=== PATIENT | female | born 1960 | race Caucasian/White ===

== ENCOUNTER → 2020-01-03 | Outpatient (CLI) | payer BC ==
[2020-01-04 12:52] LABS: Beef IgE <0.10 kU/L (<0.10); Beef IgE Class CLASS 0; Pork IgE Class CLASS 0
[2020-01-04 12:53] LABS: Yeast Bakers/Brew IgE <0.10 kU/L (<0.10); Yeast Bakers/Brew IgE Class CLASS 0
[2020-01-04 12:54] LABS: Chicken IgE Class CLASS 0; Latex IgE Class CLASS 0
[2020-01-04 12:55] LABS: Cow's Milk IgE Class CLASS 0; Egg White IgE <0.10 kU/L (<0.10); Peanut IgE <0.10 kU/L (<0.10); Potato IgE <0.10 kU/L (<0.10); Potato IgE Class CLASS 0; Soybean IgE <0.10 kU/L (<0.10)
[2020-01-04 12:56] LABS: Avocado Class CLASS 0; Banana IgE Class CLASS 0; Hazelnut IgE <0.10 kU/L (<0.10); Hazelnut IgE Class CLASS 0; Kiwi IgE <0.10 kU/L (<0.10); Kiwi IgE Class CLASS 0
== END | disposition home or self-care (01) ==
LOC: LABWHC1 13:12
PROVIDERS: ATTEND Otolaryngology
DX: L50.0 Allergic urticaria (principal)
CPT/HCPCS: 36415; 86001; 86003

== ENCOUNTER 2020-01-21 18:10 | Emergency (ER) | payer BC ==
[2020-01-21 18:19] VITALS: BP 153/88; PULSE 85; RESP 18; TEMP 98.1
[2020-01-21] MEDS ORDERED: KETOROLAC 15 MG/ML 1 ML VIAL IM STA (18:35)
--- NOTE | 2020-01-21 18:44 | ED ---
Fall HPI - General Chief Complaint: Fall Stated Complaint: Fall/5 steps/rib pain Time Seen by Provider: 01/21/20 18:22 Source: patient Mode of arrival: ambulatory - History of Present Illness Initial Comments: 59-year-old female presenting to emergency Department with a chief complaint of fall. Patient states that incident occurred yesterday when she was walking down stairs, lost control and went down 5 stairs. Patient reports she did not pass out but did injure her head. She does report an abrasion under her right eye. She also reports left-sided rib pain under her left breast. She states there is localized pain to the region but denies any ecchymosis or swelling. States the pain is slightly exacerbated with taking full deep breaths. She does report going to an urgent care where she was prescribed muscle relaxers but no significant improvement in her symptoms. She denies any nausea vomiting diarrhea. Denies any headaches, visual disturbances one-sided weakness paresthesias. - Related Data Previous Rx's Medication Instructions Recorded HYDROcodone/APAP 7.5-325MG [[place] 1 - 2 each PO Q6HR PRN #60 tab 09/11/15 7.5] HYDROcodone/APAP 7.5-325MG [[place] 1 - 2 each PO Q6HR PRN #40 tab 12/10/15 7.5-325] Allergies Allergy/AdvReac Type Severity Reaction Status Date / Time Penicillins Allergy Rash/Hives Verified 01/21/20 18:16 sulfamethoxazole Allergy Rash/Hives Verified 01/21/20 18:16 [From Bactrim] trimethoprim [From Bactrim] Allergy Rash/Hives Verified 01/21/20 18:16 Review of Systems ROS Statement: Those systems with pertinent positive or pertinent negative responses have been documented in the HPI. ROS Other: All systems not noted in ROS Statement are negative. Past Medical History Past Medical History: No Reported History History of Any Multi-Drug Resistant Organisms: None Reported Past Surgical History: Joint Replacement, Orthopedic Surgery Additional Past Surgical History / Comment(s): LT KNEE SCOPE, 09/10/15 total left knee Past Anesthesia/Blood Transfusion Reactions: No Reported Reaction Past Psychological History: No Psychological Hx Reported Smoking Status: Never smoker Past Alcohol Use History: Occasional Past Drug Use History: None Reported - Past Family History Mother Family Medical History: Cancer Brother(s) Family Medical History: Cancer Sister(s) Family Medical History: Cancer General Exam Limitations: no limitations General appearance: alert, in no apparent distress Head exam: Present: normocephalic, normal inspection. Absent: atraumatic (Abrasion on the right eye.), other (Negative Morillo sign, raccoon eyes, hemotympanum.) Eye exam: Present: normal appearance, PERRL, EOMI Pupils: Present: normal accommodation ENT exam: Present: normal exam, normal oropharynx, mucous membranes moist, TM's normal bilaterally, normal external ear exam Neck exam: Present: normal inspection, full ROM. Absent: tenderness, meningismus Respiratory exam: Present: normal lung sounds bilaterally, chest wall tenderness (Localized tenderness under the left breast.). Absent: respiratory distress, wheezes, rales Cardiovascular Exam: Present: regular rate, normal rhythm, systolic murmur GI/Abdominal exam: Present: soft. Absent: distended, tenderness, guarding, rebound Extremities exam: Present: normal inspection, full ROM, normal capillary refill. Absent: tenderness, pedal edema, joint swelling, calf tenderness Back exam: Present: normal inspection, full ROM. Absent: tenderness, CVA tenderness (R), CVA tenderness (L), muscle spasm, paraspinal tenderness, vertebral tenderness Neurological exam: Present: alert, oriented X3 Psychiatric exam: Present: normal affect, normal mood Skin exam: Present: warm, dry, intact, normal color Course Vital Signs 01/21/20 18:16 Temperature 98.1 F Pulse Rate 85 Respiratory 18 Rate Blood Pressure 153/88 O2 Sat by Pulse 100 Oximetry Medical Decision Making - Medical Decision Making 59-year-old female presenting to emergency Department with a chief been no fall. On physical examination, the patient has a localized tenderness to the left- sided ribs, particularly under her left breast. She also has an abrasion in the right infraorbital region. CT of the brain and C-spine is unremarkable. X-ray of the chest and ribs shows a nondisplaced lateral rib fracture on the fifth and sixth left rib. Patient was given an incentive spirometer as well as a Tylenol 3 starter pack. Patient was otherwise advised to alternate between Tylenol and Motrin. Strict return parameters were thoroughly discussed with patient was standing and agreeable. Case discussed with physician. Disposition Clinical Impression: Fall, Multiple fractures of ribs, left side, initial encounter for closed fracture, Facial abrasion Disposition: HOME SELF-CARE Condition: Stable Instructions (If sedation given, give patient instructions): Rib Fracture (ED) Additional Instructions: Use the incentive spirometer. Take Tylenol [address] operate heavy machinery when taking it. Otherwise alternate between Tylenol and Motrin for pain control. Return to emergency department if symptoms worsen. Is patient prescribed a controlled substance at d/c from ED?: No Referrals: Merlene Mancia MD [Primary Care Provider] - 1-2 days Time of Disposition: 19:39
--- NOTE | 2020-01-21 19:00 | XR ---
EXAMINATION TYPE: XR ribs LT w pa chest xray DATE OF EXAM: 01/21/2020 COMPARISON: NONE HISTORY: Pain TECHNIQUE: 5 views FINDINGS: Heart and mediastinum are within normal limits. Lungs are clear of infiltrate. There is no pleural effusion or pneumothorax. There are nondisplaced fractures of the lateral left fifth and sixt h ribs. IMPRESSION: Left-sided rib fractures. No cardiopulmonary disease.
--- NOTE | 2020-01-21 19:16 | CT ---
EXAMINATION TYPE: CT brain cspine wo con DATE OF EXAM: 01/21/2020 COMPARISON: None HISTORY: Facial laceration post fall injury CT DLP: 1600.8 mGycm Automated exposure control for dose reduction was used. Ventricles and sulci appear normal. There is no mass effect nor midline shift. There is no sign of in tracranial hemorrhage. The calvarium is intact. Skull base is intact. Cervical vertebra have normal alignment. There is spurring of the endplates in the lower cervical spi ne. Facet joints show multilevel hypertrophic spur formation. Prevertebral soft tissues are intact. T here is no evidence of cervical spine fracture. IMPRESSION: Negative CT scan of the brain. Spondylotic changes in the lower cervical spine. No fracture.
[2020-01-21] MEDS ORDERED: ACET/COD 300 MG/30 MG STARTER PACK 6 TAB BTL PO STA (19:29)
== END 2020-01-21 20:02 | disposition home or self-care (01) ==
LOC: EC 18:10
DX: S22.42XA Multiple fractures of ribs, left side, initial encounter for closed fracture (principal); S00.81XA Abrasion of other part of head, initial encounter; Z88.0 Allergy status to penicillin; Z88.2 Allergy status to sulfonamides; Z88.1 Allergy status to other antibiotic agents; Z96.652 Presence of left artificial knee joint; W10.9XXA Fall (on) (from) unspecified stairs and steps, initial encounter; Y93.01 Activity, walking, marching and hiking; Y92.009 Unspecified place in unspecified non-institutional (private) residence as the place of occurrence of the external cause
CPT/HCPCS: 71101; 72125; 70450; 96372; 99284; J1885

== ENCOUNTER → 2020-10-24 | Outpatient (CLI) | payer BC ==
--- NOTE | 2020-10-24 14:55 | USB ---
Reason for exam: clinical finding. History: Patient had first child after 30. Family history of breast cancer in sister. Indicated problem(s): palpable abnormality in the left breast. Physical Findings: Nurse Summary: 1cm palpable lump left breast 7-8 o'clock, patient states has been there for 20 years but now getting bigger (nurse TM). US Breast LT Left complete breast ultrasound includes all four quadrants, the retroareolar region and axilla. Finding demonstrates a 0.9 x 0.5 x 1.1cm oval, hypoechoic lesion at 7 o'clock in skin line, probable sebaceous cyst. Recommend mammography. These results were verbally communicated with the patient and result sheet given to the patient on 10/24/20. ASSESSMENT: Probably benign, BI-RAD 3 RECOMMENDATION: Ultrasound of the left breast in 6 months.
== END | disposition home or self-care (01) ==
LOC: RADMAMWWP 13:38
PROVIDERS: ATTEND Family Medicine
DX: N63.0 Unspecified lump in unspecified breast (principal)

== ENCOUNTER → 2022-07-24 | Outpatient (CLI) | payer BC ==
[2022-07-24 10:57] LABS: Basophils # (A) 0.04 X 10*3/uL (0.00-0.10); Basophils % (A) 0.9 %; Eosinophils % (A) 2.2 %; HCT 42.8 % (37.2-46.3); HGB 13.5 g/dL (12.0-15.0); Immature Grans, Automated 0.2 %; Lymphocytes # (A) 1.75 X 10*3/uL (0.90-5.00); Lymphocytes % (A) 38.6 %; MCH 27.7 pg (27.0-32.0); MCHC 31.5 g/dL (32.0-37.0); MCV 87.9 fL (80.0-97.0); Monocytes # (A) 0.33 X 10*3/uL (0.20-1.00); Monocytes % (A) 7.3 %; NRBC Per 100 WBC 0 /100 WBCS (0.0-0.0); Neutrophils % (A) 50.8 %; Platelet Count 177 X 10*3/uL (140-440); RBC 4.87 X 10*6/uL (4.10-5.20); RDW 13.7 % (11.5-14.5); WBC 4.53 X 10*3/uL (4.50-10.00)
[2022-07-24 14:26] LABS: INR 0.86 (0.90-1.11); Prothrombin Time 9.8 sec (9.9-11.9)
[2022-07-24 16:22] LABS: African American GFR (CKD) 92.2 (60.0-200.0); Anion Gap 12.9 mmol/L (10.00-18.00); BUN/Creat Ratio 20.75 Ratio (12.00-20.00); Blood Urea Nitrogen 16.6 mg/dL (9.0-27.0); Calcium 9.3 mg/dL (8.7-10.3); Carbon Dioxide 25.1 mmol/L (20.0-27.5); Non-African American GFR(CKD) 79.6 (60.0-200.0); Potassium 4.1 mmol/L (3.5-5.5)
== END | disposition home or self-care (01) ==
LOC: LABWHC1 07:52
PROVIDERS: ATTEND Orthopaedic Surgery
DX: Z01.818 Encounter for other preprocedural examination (principal); M17.11 Unilateral primary osteoarthritis, right knee; Z22.322 Carrier or suspected carrier of Methicillin resistant Staphylococcus aureus
CPT/HCPCS: 36415; 80048; 85025; 85610; 87070; 93005

== ENCOUNTER 2022-07-30 06:24 | Day surgery (SDC) | payer BC ==
--- NOTE | 2022-07-29 13:11 | HP ---
HISTORY AND PHYSICAL DATE OF SCHEDULED SURGERY: 07/30/2022. HISTORY OF PRESENT ILLNESS: Greer Chapin is a 61-year-old patient seen with symptomatic right knee osteoarthritis. We discussed options regarding treatment. She elected to proceed with right total knee arthroplasty. Consent regarding the procedure was obtained. PAST MEDICAL HISTORY: Noncontributory. SURGICAL HISTORY: Knee arthroscopy. DAILY MEDICATIONS: Ibuprofen as needed. ALLERGIES: Penicillin and Bactrim. SOCIAL HISTORY: She denies current tobacco use. PHYSICAL EVALUATION OF RIGHT KNEE: Range of motion is -6/7 to 110 degrees. Mild effusion. Tenderness along the medial joint line with a positive medial Belia's. Medial patellofemoral crepitus on range of motion. There is some pain with patellofemoral compression. Ligaments stable. Painless rotation of the hip. Distal neurovascular exam intact. RADIOGRAPHS: Right knee radiographs reveal severe osteoarthritic changes. IMPRESSION: Right knee osteoarthritis. PLAN: Right total knee arthroplasty. MMODL / IJN: [id number] /
[~2022-07-30 06:24] MED LIST: ACETAMINOPHEN TAB 500 MG TAB PO PRN; MELOXICAM 7.5 MG TAB PO PRN; TRANEXAMIC ACID IN NACL,ISO-OS 1,000 MG in SALINE 1 100ML.BAG IVPB PRN; ceFAZolin 3 GM in SODIUM CHLORIDE 0.9% 100 ML IVPB PRN
[2022-07-30] MEDS ORDERED: LACTATED RINGERS 1,000 ML IV SCH (06:46)
[2022-07-30] MEDS ORDERED: DEXAMETHASONE SOD PHOSPHATE 4 MG/ML 1 ML VIAL IV ONE (06:46)
[2022-07-30] MEDS ORDERED: LIDOCAINE 1% (10MG/ML) FOR IV START INTRADERMA PRN (06:46)
[2022-07-30] MEDS ORDERED: ONDANSETRON 4 MG/2 ML VIAL IVP ONE (06:46)
[2022-07-30] MEDS ORDERED: MIDAZOLAM 2 MG/2 ML VIAL IV PRN (06:46)
[2022-07-30] MEDS ORDERED: fentaNYL (PF) 50 MCG/ML 2 ML AMP IVP PRN (07:00)
[2022-07-30 07:17] VITALS: RESP 16
[2022-07-30] MEDS ORDERED: fentaNYL (PF) 50 MCG/ML 2 ML AMP IV ONE (07:26)
[2022-07-30] MEDS ORDERED: MIDAZOLAM 2 MG/2 ML VIAL IVP ONE (07:26)
--- NOTE | 2022-07-30 07:52 | P.ANPRN ---
Procedure Note - Anesthesia - Nerve Block Performed Right Adductor Canal Infusion Time Out Performed: Yes Date of Procedure: 07/30/22 Procedure Start Time: : Procedure Stop Time: :37 Location of Patient: PreOp Indication: Acute Post-Operative Pain, Requested by Surgeon Specifically requested for management of pain by DrCiro: Reed Kathleen Sedation Type: Sedate with meaningful contact maintained Preparation: Sterile Prep, Sterile Dressing Position: Supine Catheter: Indwelling Needle Types: Pajunk Needle Gauge: 18 Ultrasound used to visualize needle placement: Yes Ultrasound used to observe medication spread: Yes Injectate: 0.5% Ropivacaine (see comment for volume) (20 ml +10 ml NS) Blood Aspirated: No Pain Paresthesia on Injection Noted: No Resistance on Injection: Normal Image Stored and Saved: Yes Events: Uneventful and Well Tolerated
[2022-07-30] MEDS ORDERED: ROPIVACAINE 1,100 MG, SODIUM CHLORIDE 0.9% 500 ML 330 ML, EMPTY PAIN BALL 1 EACH MISCELLANE PRN ×2 (07:53)
--- NOTE | 2022-07-30 07:53 | P.ANPRN ---
Procedure Note - Anesthesia - Nerve Block Performed Right iPack Single Time Out Performed: Yes Date of Procedure: 07/30/22 Procedure Start Time: 07:38 Procedure Stop Time: 07:45 Location of Patient: PreOp Indication: Requested by Surgeon Specifically requested for management of pain by DrCiro: Reed Kathleen Sedation Type: Sedate with meaningful contact maintained Preparation: Sterile Prep Position: Left Lateral Needle Types: Pajunk Needle Gauge: 21 Ultrasound used to visualize needle placement: Yes Ultrasound used to observe medication spread: Yes Injectate: 0.5% Ropivacaine (see comment for volume) (20 ml +10 ml NS + 4 mg dexamethasone) Blood Aspirated: No Pain Paresthesia on Injection Noted: No Resistance on Injection: Normal Image Stored and Saved: Yes Events: Uneventful and Well Tolerated
[2022-07-30] MEDS ORDERED: ROCURONIUM 10 MG/ML (5 ML VIAL) IV ONE (08:01)
[2022-07-30] MEDS ORDERED: DEXAMETHASONE SOD PHOSPHATE 4 MG/ML 1 ML VIAL ONE (08:01)
[2022-07-30] MEDS ORDERED: LIDOCAINE 2% INJ 20 MG/ML (2 ML VIAL) ONE (08:01)
[2022-07-30] MEDS ORDERED: TRANEXAMIC ACID IN NACL,ISO-OS 1,000 MG/100 ML BAG ONE (08:01)
[2022-07-30] MEDS ORDERED: GLYCOPYRROLATE 0.2 MG/ML 2 ML VIAL ONE (08:01)
[2022-07-30] MEDS ORDERED: PROPOFOL 10 MG/ML 20 ML VIAL IV ONE (08:01)
[2022-07-30] MEDS ORDERED: HYDROmorphone (PF) 1 MG/ML ONE (08:01)
[2022-07-30] MEDS ORDERED: ROPIVACAINE 5 MG/ML 30 ML VIAL ONE (08:01)
[2022-07-30] MEDS ORDERED: SODIUM CHLORIDE 0.9% (PF) 10 ML VIAL ONE (08:01)
[2022-07-30] MEDS ORDERED: SUCCINYLCHOLINE CHLORIDE 200 MG/10 ML VIAL IV ONE (08:01)
[2022-07-30] MEDS ORDERED: NEOSTIGMINE 1 MG/ML 10 ML VIAL ONE (08:01)
[2022-07-30] MEDS ORDERED: MIDAZOLAM 2 MG/2 ML VIAL ONE (08:01)
[2022-07-30] MEDS ORDERED: fentaNYL (PF) 50 MCG/ML 2 ML AMP ONE (08:01)
[2022-07-30] MEDS ORDERED: ceFAZolin 1,000 MG in SODIUM CHLORIDE 0.9% 1,000 ML IRRIGATION ONE (08:04)
[2022-07-30] MEDS ORDERED: Acetaminophen-Codeine 300-30mg TAB PO PRN (09:58)
[2022-07-30] MEDS ORDERED: NALOXONE 0.4 MG/ML 1 ML VIAL IV PRN (09:58)
[2022-07-30] MEDS ORDERED: HYDROcodone/APAP 7.5-325MG 1 EACH TAB PO PRN (09:58)
[2022-07-30] MEDS ORDERED: HYDROmorphone 0.5 MG/0.5 ML SYRINGE IVP PRN ×2 (09:58)
[2022-07-30] MEDS ORDERED: LACTATED RINGERS 1,000 ML IV ONE ×2 (09:58→10:08)
[2022-07-30] MEDS ORDERED: HYDROmorphone 1 MG/ML 1 ML SYRINGE IVP PRN (09:58)
--- NOTE | 2022-07-30 09:58 | P.OP ---
Date of Procedure: 07/30/22 Preoperative Diagnosis: Right knee osteoarthritis Postoperative Diagnosis: Right knee osteoarthritis Procedure(s) Performed: Right total knee arthroplasty Implants: 1. Depuy attune size 6 narrow right cruciate retaining cemented femur 2. Depuy attune size 5 fixed bearing cemented tibial baseplate 3. Depuy attune size 5 fixed bearing cruciate retaining 10 mm polyethylene tibial insert 4. Depuy attune 35 mm all polyethylene cemented patella Anesthesia: GETA, regional (Adductor canal catheter, Ipack block) Surgeon: Reed Kathleen Nurse Wound #1: Ta Holguin Estimated Blood Loss (ml): 55 Pathology: other (Bone) Condition: stable Disposition: PACU Indications for Procedure: 60-year-old patient seen with symptomatic right knee osteoarthritis. After having treatment options discussed, she elected to proceed with total knee arthroplasty. Consent was obtained. Operative Findings: See description of procedure Description of Procedure: Patient was taken to the operative suite after having an adductor canal catheter placed by the department of anesthesia. Patient underwent a general anesthetic by the department of anesthesia. Patient was given preoperative IV intake antibiotics and TXA. A well-padded tourniquet was placed about the right lower extremity. The lower extremity was then prepped and draped in the normal sterile orthopedic fashion. The extremity was elevated, a tourniquet was insufflated to 300. A standard anterior incision was made sharply through skin. Dissection was taken down through the subcutaneous soft tissues down to the ext ensor mechanism. A medial arthrotomy was performed, patella was everted and knee was flexed. There was advanced osteoarthritis noted. I introduced my distal intramedullary femoral drill. I then introduced the distal femoral cutting jig. Doni KENNEY secured the cutting jig with 2 pins. I held retractors in position while Doni KENNEY performed the distal femoral resection through the guide area we now removed her distal femoral cutting guide. We now placed our 4-in-1 femoral cutting block and positioned and it was secured with 2 pins by Doni KENNEY while I held the block in position. The distal femoral finishing was now completed. A proximal tibial cutting guide was positioned. I held the guide in the appropriate position with both hands well Doni KENNEY inserted stabilizing pins into the guide. Proximal tibial cut was made. We now placed a trial femoral component into position, along with an appropriate size tibial tray and insert. We now took the knee through range of motion and had full extension good flexion and good overall soft tissue balance noted. The patella was everted and stabilized with 2 towel clips held by Doni KENNEY while I performed a flush with patellar quad tendon utilizing a fresh sawblade. We templated the patella, appropriate drill holes were made. An appropriate trial patella was positioned, knee was taken through full range of motion with the patella tracking very nicely. The trial patella was removed. Drill holes were made through the femoral component. All trial components were removed after marking off the appropriate rotation of the tibia. Retractors were now positioned along the proximal tibia. An appropriate keel punch was made with the appropriate size tibial guide by myself on Doni KENNEY assisted by holding retractors. At this point appropriate size implants were chosen and opened. The joint was irrigated copiously with pulse lavage mechanical irrigation. The wound was irrigated with pulse lavage mechanical irrigation. We mixed antibiotic methylmethacrylate. We placed the knee into flexion. We placed multiple retractors assisted by Doni KENNEY to expose the proximal tibia. Once the methyl methacrylate was ready, the tibial component was cemented into place removing any excess methylmethacrylate form by both myself and Doni KENNEY. The femoral component was cemented into place removing the removing any excess methylmethacrylate performed by both myself and Doni KENNEY. We then inserted the appropriate size polyethylene tibial insert. We made sure that it was locked into position. We took the knee into full extension, and then back in a flexion making sure we had removed any excess methylmethacrylate. The patellar component was then cemented down and secured with clamp. Excess methylmethacrylate removed. We kept the knee in full extension, patellar clamp in position until methylmethacrylate had hardened. Once it had hardened the patellar clamp was removed. The knee was taken through full range of motion. The patella tracked nicely. There was good soft tissue balancing. The tourniquet was now released. Additional hemostasis was achieved via electrocautery. A second gram of TXA was given. The wound again was irrigated with pulse lavage mechanical irrigation. The extensor mechanism was repaired with Ethibond suture. We checked the repair with range of motion and it was stable. The subcutaneous soft tissues were repaired with Vicryl in layers. The skin was approximated with pernio/Dermabond. Sterile dressings were applied followed by loose web roll and Jose Angel bandage. The patient was transferred to a bed, and taken to recovery in stable and satisfactory condition. Doni KENNEY assisted with this complex procedure.
[2022-07-30 10:26] VITALS: TEMP 97.9
[2022-07-30] MEDS: HYDROmorphone 0.5 MG/0.5 ML SYRINGE IVP PRN ×4 (10:26→11:31)
--- NOTE | 2022-07-30 11:04 | XR ---
EXAMINATION TYPE: XR knee limited RT DATE OF EXAM: 07/30/2022 10:42 AM INDICATION: Patient age:Female; 62 years old; Reason for study: Evaluation for Postop abnormality and alignment; LOCATED WITHIN [facility]. COMPARISON: Right knee radiograph 06/18/2022 TECHNIQUE: The Right knee(s) was examined in frontal and crosstable lateral projections. FINDINGS: Post surgical changes from total right knee arthroplasty with distal femoral and proximal t ibial components. Hardware appears intact with appropriate alignment. There is associated soft tissue gas and edema with skin marino. No acute fracture or dislocation. IMPRESSION: Postsurgical changes from total right knee arthroplasty. Hardware appears intact with appropriate ali gnment.
[2022-07-30 13:11] VITALS: BP 154/87; PULSE 77
[2022-07-30] MEDS ORDERED: ceFAZolin 3 GM in SODIUM CHLORIDE 0.9% 100 ML IVPB ONE (13:59)
== END 2022-07-30 14:58 | disposition home health service (06) ==
LOC: OR 06:24
PROVIDERS: ATTEND Orthopaedic Surgery
DX: M17.11 Unilateral primary osteoarthritis, right knee (principal); G89.18 Other acute postprocedural pain; E66.01 Morbid (severe) obesity due to excess calories; Z68.42 Body mass index [BMI] 45.0-49.9, adult; Z88.2 Allergy status to sulfonamides; Z88.0 Allergy status to penicillin
CPT/HCPCS: 27447; 97110; 97161; 64999; 64448; 73560; C1776; C1713 ×2; C1751; J2250; J0330; J1100; J2710; J0690 ×2; J2405; J3010; J1170 ×2; J2795; J2704; J2001